=== PATIENT | female | born 1935 | race African-American/Black ===

== ENCOUNTER 2016-02-28 14:07 | Inpatient (IN) ==
[2016-02-28] MEDS ORDERED: NITROGLYCERIN 2% OINT 1 INCH/GM PACK TOP STA (14:38)
--- NOTE | 2016-02-28 14:53 | Emergency Department Note ---
Diana Baron Gwan, am scribing for, and in the presence of, Robert Daniel MD 14:42 . María Baron James D, MD, personally performed the services described in this documentation, ascribed by Sara Ortiz in my presence, and it is both accurate and complete 452 . Arrival - Arrival Chief Complaint: Shortness of Breath Stated Complaint: SOB transfer ED Nursing Triage Note: Pt sent from [facility] for SOB x 2 days and Trop of .35/BNP 6192 Mode of Arrival: Stretcher Limitations: No Limitations Source: Patient, Old Records Reviewed, RN Notes Reviewed Time Seen by Provider: 02/28/16 14:31 - History of Present Illness HPI Narrative: Pt is a 80 y/o female, brought in by EMS and transferred from [facility], for further evaluation of SOB with an onset of 2 days. EMS noted that pt has a Trop of .35/BNP 6192. Patient stated that her sxs worsened yesterday morning. She denies having any chest pain. She confirms that she leaves at home. During exam, patient stated that she has a sore on the heel if her right foot. Pt has a PMHx of CHF, HTN, CVA, peripheral neuropathy and NIDDM. No other problems/ complaints reported in ED. Onset (ago): day(s) Consistency: constant Severity: moderate Allergies/Adverse Reactions: Allergies Allergy/AdvReac Type Severity Reaction Status Date / Time No Known Allergies Allergy Unverified 08/07/14 13:06 Home Medications: Home Medications Medication Instructions Recorded Confirmed Type Fosinopril [Monopril] 20 mg PO DAILY 10/23/15 02/28/16 History Furosemide Tab [Lasix Tab] 40 mg PO QAM 10/23/15 02/28/16 History Multivits-Min/Iron/FA/Lutein 1 each PO DAILY 10/23/15 02/28/16 History [Centrum Silver Women Tablet] HYDROcodone/ACETAMIN 10-325 [[place] 1 tablet PO TID 02/28/16 02/28/16 History 10-325] Review of System - Review of System 12 point system: reviewed and no additional remarkable complaints except as stated - Review of System Respiratory: Present: as per HPI, other (short of breathe) Medical,Surgical,& Family Hx - Medical History Cardio: History of: CHF, Hypertension Neurology: History of: Cerebrovascular Accident, Peripheral Neuropathy Endocrine: History of: Diabetes Mellitus (NIDDM), Dyslipidemia Musculoskeletal: History of: Musculoskeletal Problems - Surgical History Abdominal Surgeries: Surgical HX of: Cholecystectomy - Social History Smoking Status: Never smoker Exam Vital Signs: Vital Signs Temperature 97.1 F L 02/28/16 14:11 Pulse Rate 80 02/28/16 15:34 Respiratory Rate 18 02/28/16 15:34 Blood Pressure 131/75 02/28/16 15:34 O2 Sat by Pulse Oximetry 98 02/28/16 15:34 GENERAL: This is a chronically ill-appearing white female in no apparent distress. VITAL SIGNS: Reviewed HEENT: Head is atraumatic and normocephalic. Pupils are equal round react to light. Extraocular movements are intact. Oropharynx is benign with moist mucous membranes. NECK: Neck is soft and supple without tenderness. There are no masses. There is no lymphadenopathy. LUNGS: Bibasilar rales. Chest rises symmetrically. There is no chest wall tenderness. CV: Heart is regular rate and rhythm without murmurs rubs or gallops. ABDOMEN: Abdomen is soft, nontender to palpation. There are no abdominal abnormal masses palpated. There is no organomegaly. Bowel sounds are present and active. SKIN: Skin is warm and dry. No rash. EXTREMITIES: Patient has full range of motion without tenderness. There is no pedal edema. NEUROLOGIC: Awake alert and oriented 4. Cranial nerves II through XII are grossly intact. Motor is 4 over 5 in all extremities bilaterally. Course - Consultations Consultation #1: Discussed with hospitalist. Patient will be admitted to their service. Time: 15:56 Results - Labs CBC & BMP: 02/28/16 14:59 Lab Results: I have reviewed the patients labs Labs: Laboratory Tests 02/28/16 02/28/16 14:59 15:30 INR 1.1 Urine pH 5.0 Ur Specific [place] 1.005 Urine RBC 31 Urine WBC <1 - EKG EKG results: interpreted by ERMD - Impressions EKG: Normal sinus rhythm with a rate of 81, first-degree AV block, right bundle branch block, left axis deviation. - Diagnostic Findings Procedure: Chest x-ray: image reviewed by me (Cardiomegaly with elevated right hemidiaphragm and possible right pleural effusion) Disposition Clinical Impression: Congestive heart failure, Hematuria Case discussed with: patient Disposition: Still a Patient Condition: Stable Time of Disposition: 15:56
--- NOTE | 2016-02-28 14:53 | EKG Report ---
Stationary ECG Study [facility] ER Test Date: 02/28/2016 2:14:36 PM Pat Name: CLIFTON GARCIA Department: Room: Gender: F Director Internal Communications: BULL Tadeo : 1935 Requested by: Robert Rodrigues Order Number: [id number] Reading MD: RISHABH THOMAS Intervals [place] Rate: 81 P: 74 SD: 287 QRS: -86 QRSD: 178 T: -4 QT: 428 QTc: 465 Interpretive Statements SINUS RHYTHM WITH PROLONGED SD INTERVAL MARKED LEFT AXIS DEVIATION RIGHT BUNDLE BRANCH BLOCK Electronically Signed On 02-28-16 16:39:28 OVEN UNLOADER by RISHABH THOMAS [email or web address]
[2016-02-28 15:29] LABS: Basophils % 0.3 % (0.0-0.8); Eosinophils % 0.1 % (0.00-10.9); Hematocrit 31.7 VOL% (35.7-47.0); Hemoglobin 10.1 GM/DL (12.0-16.0); Immature Granulocytes % 0.3 %; Immature Granulocytes Absolute 0.02 #; Lymphocytes # 1.9 10*3/uL (1.4-4.0); Lymphocytes % 24.4 % (21.3-54.2); Mean Corpuscular HGB Conc 31.9 GM/DL (32-36); Mean Corpuscular Hemoglobin 25 PG (27-34); Mean Corpuscular Volume 79.1 FL (87-102); Mean Platelet Volume 10.5 FL (9.6-12.0); Monocytes # 0.8 10*3/uL (0.11-0.8); Monocytes % 10.2 % (1.7-12.7); Neutrophils % 64.7 % (38.7-73.9); Platelet Count 208 10*3/uL (130-400); Red Blood Count 4.01 10*6/uL (3.8-5.5); Red Cell Distribution Width 14.2 % (9.3-17.3); White Blood Count 7.7 10*3/uL (4.5-13.71)
--- NOTE | 2016-02-28 15:31 | XRay Report ---
Portable chest Date:[Date] Clinical history: Shortness of breath Comparison: 02/28/2016 Technique: Portable AP sitting chest Findings: Stable cardiomegaly with chronic prominent elevation of the right hemidiaphragm. Atelectasis especially in the right mid to lower lung zone. Stable mediastinum with degenerative changes. Impression: Mild cardiomegaly with chronic elevation of the right hemidiaphragm. Residual scarring/atelectasis. PROCEDURE INTERPRETED AT [facility] ([facility] DEPARTMENT OF RADIOLOGY Final Report Signed by: Dr. Betty Garcia
[2016-02-28 15:41] LABS: INR 1.1; PT Patient Result 12.1 SECS; Partial Thromboplastin Time 31.2 SECS (0-40)
[2016-02-28] MEDS ORDERED: NITROGLYCERIN 2% OINT 1 INCH/GM PACK TOP ONE (15:41)
[2016-02-28 15:48] LABS: Apearance,Urine CLEAR (Clear); Bilirubin,Urine Negative (Negative); Blood, Urine Moderate mg/dL (Negative); Glucose,Urine (UA) Negative (Negative); Hyaline Casts,Urine 1 /LPF (0-3); Ketones,Urine Negative (Negative); Nitrite,Urine Negative (Negative); Protein,Urine Negative; RBC,Urine 31 /HPF (0-4); Squamous Epithelial Cell,Urine Occasional /HPF (0-10); Urine Color Straw (Yellow); Urine Specific Gravity 1.005 (1.001-1.035); Urine Urobilinogen < 2.0 EU/DL (0.2-1.0); WBC,Urine <1 /HPF (0-6)
[2016-02-28 15:54] LABS: Albumin 3.4 G/DL (3.4-5.0); Bilirubin,Total 1.8 MG/DL (0.2-1.0); Osmolality,Calculated 288.7 MOS/KG (273-304); Potassium 3.9 MMOL/L (3.5-5.1); Total Protein 6.9 G/DL (6.4-8.3)
[2016-02-28 15:57] LABS: Troponin I Only 1.09 NG/ML (0.00-0.045)
[2016-02-28] MEDS ORDERED: MORPHINE 2 MG/1 ML SYRINGE IV PRN (17:35)
[2016-02-28] MEDS ORDERED: LACTULOSE 20 GM/30 ML UDCUP PO PRN (17:35)
[2016-02-28] MEDS ORDERED: ACETAMINOPHEN 325 MG TABLET PO PRN (17:35)
[2016-02-28] MEDS ORDERED: ONDANSETRON 4 MG/2 ML VIAL IV PRN (17:35)
--- NOTE | 2016-02-28 18:49 | Hospitalist History & Physical ---
Assessment and Plan - Time spent with patient Time spent with patient: Greater than 30 minutes (1) Congestive heart failure Status: Acute Assessment and plan: Admit to monitored bed BNP in the morning, troponin the morning Routine labs Resume home medicines as appropriate. IV Lasix twice a day I&O PRN meds further plan and addendum to follow per Dr. Avilez Current Visit: Yes History of Present Illness Chief complaint: shortness of breath History of present illness: Ms. Sanchez is a 80 year old female who presents to the ER today from [facility]. She presented there with elevated BNP and elevated troponin. She complains of shortness of breath that worsened yesterday morning. Denies productive cough. Denies chest pain, denies headache, denies blurry vision, chills, fever, abdominal pain, nausea vomiting diarrhea, dysuria, edema. She is seen in the ER and after receiving IV Lasix, she has had a total urine output of 1300 mL and states her shortness of breath is much improved. She is awake and alert. She has a past medical history of CHF, hypertension, CVA, neuropathy and diabetes. Past surgical history of cholecystectomy. She denies smoking or drinking or drug use. Due to her previous stroke, she is debilitated from her left side, she lives at home and family helps take care of her. She does have a right heel wound, currently dressed. Troponin is elevated now to 1.090 and BNP here is 1600. On assessment she sounds like she has some respiratory congestion in her upper airways, family does agree that she chokes and coughs often while eating. Swallowing study has been ordered, upon Dr. Avilez assessment this was clear. Home Medications Medication Instructions Recorded Confirmed Type Fosinopril [Monopril] 20 mg PO DAILY 10/23/15 02/28/16 History Furosemide Tab [Lasix Tab] 40 mg PO QAM 10/23/15 02/28/16 History Multivits-Min/Iron/FA/Lutein 1 each PO DAILY 10/23/15 02/28/16 History [Centrum Silver Women Tablet] HYDROcodone/ACETAMIN 10-325 [[place] 1 tablet PO TID 02/28/16 02/28/16 History 10-325] Allergies Allergy/AdvReac Type Severity Reaction Status Date / Time No Known Allergies Allergy Unverified 08/07/14 13:06 Medical,Surgical,& Family Hx - Medical History Cardio: History of: CHF, Hypertension Neurology: History of: Cerebrovascular Accident, Peripheral Neuropathy Endocrine: History of: Diabetes Mellitus (NIDDM), Dyslipidemia Musculoskeletal: History of: Musculoskeletal Problems - Surgical History Abdominal Surgeries: Surgical HX of: Cholecystectomy - Social History Smoking Status: Never smoker Frequency of Alcohol Use: None Type of Drug Use: None Lives With:: Sibling Functional capacity: bed bound 12 point system: reviewed and no additional remarkable complaints except as stated Exam - Constitutional Vitals: Period Temp Pulse Resp BP Sys/Wiley Pulse Ox Last 24 Hr 97.1 F 79-83 17-24 131-165/63-100 95-100 General appearance: no acute distress - Head Head exam: Present: normal inspection, normocephalic - Eye Eye exam: Present: EOMI. Absent: scleral icterus Pupils: Present: JANETTE, normal accommodation - ENT ENT exam: Present: normal exam, normal oropharynx - Neck Neck exam: Present: normal inspection. Absent: lymphadenopathy - Respiratory Respiratory exam: Present: clear to auscultation bilaterally. Absent: wheezes - Cardiovascular Cardiovascular exam: Present: regular rate and rhythm. Absent: tachycardia - GI/Abdominal GI/Abdominal exam: Present: normal bowel sounds, soft. Absent: tenderness - Extremities Exam Extremities exam: Present: normal inspection, full ROM. Absent: edema - Back Exam Back exam: Present: normal inspection. Absent: muscle spasm - Neurological Exam Neurological exam: Present: alert, oriented X3 - Psychiatric Psychiatric exam: Present: normal affect, normal mood - Skin Skin exam: Present: normal color, warm, dry Results - Labs CBC & BMP: 02/28/16 14:59 02/28/16 14:59 Lab Results: I have reviewed the past 24 hour labs - Diagnostic Findings Procedure: Chest x-ray: report reviewed by me (mild cardiomegaly)
--- NOTE | 2016-02-28 21:09 | ECHO Report ---
Zeny Sanchez Exam Date: 02/28/2016 15:07 Referring Physician: Technologist: Dina BRINK Age: 80 Ht (in): Wt (lb): Gender: F Exam Location: [facility] Echo Indications: CHF, SOB, CVA, NIDDM BP: / HR: Rhythm: Sinus Technical Quality: Technically difficult study IMPRESSIONS Technically limited study with very poor visualization of the endocardial borders. The left ventricle is of normal size. The septum is mildly hypertrophic with normal systolic thickening. The remaining segments are not well visualized. The systolic function is grossly normal. Grade 3-4 diastolic dysfunction. Moderately dilated left atrium. Mild mitral regurgitation. MEASUREMENTS (Male / Female) Normal Values 2D ECHO LV Diastolic Diameter PLAX 3.8 cm 4.2 - 5.9 / 3.9 - 5.3 cm LV Systolic Diameter PLAX 3.4 cm LV Fractional Shortening PLAX 11.8 % IVS Diastolic Thickness 1.8 cm 0.6 - 1.0 / 0.6 - 0.9 cm LVPW Diastolic Thickness 1.2 cm 0.6 - 1.0 / 0.6 - 0.9 cm RV Internal Dim ED PLAX 3.2 cm Aortic Root Diameter 2.7 cm LA Systolic Diameter LX 3.8 cm 3.0 - 4.0 / 2.7 - 3.8 cm DOPPLER TR Peak Velocity 143.0 cm/s TR Peak Gradient 8.2 mmHg FINDINGS Left Ventricle The left ventricle is of normal size. The septum is mildly hypertrophic with normal systolic thickening. The remaining segments are not well visualized. The systolic function is grossly normal. Grade 3-4 diastolic dysfunction. Right Ventricle Normal right ventricular size. Right Atrium Normal right atrial size. Left Atrium The left atrium is moderately enlarged. Mitral Valve Poorly visualized, with mild regurgitation. Aortic Valve Poorly visualized. Tricuspid Valve Poorly visualized. insufficient data to estimate pulmonary artery systolic function. Pulmonic Valve Pulmonic valve not visualized. Pericardium No pericardial effusion. Aorta Not well visualized. Michael Rausch (Electronically Signed) Final Date: 28 February 2016 21:08
[2016-02-28] MEDS ORDERED: INFLUENZA VIRUS VACCINE 0.5 ML SYRINGE IM ONE (23:37)
[2016-02-29 06:16] LABS: Basophils % 0.2 % (0.0-0.8); Eosinophils % 0.2 % (0.00-10.9); Hematocrit 30.5 VOL% (35.7-47.0); Hemoglobin 9.4 GM/DL (12.0-16.0); Immature Granulocytes % 0.3 %; Immature Granulocytes Absolute 0.03 #; Lymphocytes # 1.8 10*3/uL (1.4-4.0); Lymphocytes % 20.4 % (21.3-54.2); Mean Corpuscular HGB Conc 30.8 GM/DL (32-36); Mean Corpuscular Hemoglobin 25 PG (27-34); Mean Corpuscular Volume 80.1 FL (87-102); Mean Platelet Volume 11.1 FL (9.6-12.0); Monocytes # 0.9 10*3/uL (0.11-0.8); Monocytes % 9.6 % (1.7-12.7); Neutrophils # 6.2 10*3/uL (1.4-7.4); Neutrophils % 69.3 % (38.7-73.9); Platelet Count 191 10*3/uL (130-400); Red Blood Count 3.81 10*6/uL (3.8-5.5); Red Cell Distribution Width 14.4 % (9.3-17.3); White Blood Count 8.9 10*3/uL (4.5-13.71)
[2016-02-29 06:57] LABS: Bilirubin,Total 1.9 MG/DL (0.2-1.0); Calcium 8.8 MG/DL (8.5-10.1); Osmolality,Calculated 292.6 MOS/KG (273-304); Potassium 3.8 MMOL/L (3.5-5.1)
[2016-02-29] MEDS: FOSINOPRIL 20 MG TABLET PO SCH (09:07)
[2016-02-29] MEDS: FUROSEMIDE 40 MG/4 ML VIAL IV SCH ×2 (09:07→17:18)
[2016-02-29] MEDS ORDERED: SKIN HEALING OINT (AQUAPHOR) 50 GM TUBE TOP PRN (09:48)
--- NOTE | 2016-02-29 10:49 | Physician Query Form ---
CLICK EDIT DOCUMENT TO SELECT QUERY ANSWER --> OK --> SIGN Dina Sanchez RN, CCDS Certified Clinical Cold Press Loader W) [phone] (f) [phone] [email or web address]: Make your selection(s) from the choices in EACH section by typing an "x" and enter comments in the comment section. Please use your independent medical judgment in providing your response. This request does not imply that any particular answer is desired or expected. CLINICAL INDICATORS: (Providers should not edit this section) The medical record indicates that the patient was admitted with CHF, BNP of 1613 #, and the patient was treated with IV Lasix. Please provide further specificity regarding CHF. ACUITY: ( ) Acute ( ) Chronic ( x) Acute on Chronic ( ) Clinically unable to determine TYPE: ( ) Systolic ( x) Diastolic ( ) Combined Systolic/Diastolic ( ) Other, please specify: ( ) Clinically unable to determine ( ) The patient does NOT have CHF COMMENTS: Use of terms such as suspected, likely, or probable (associated with a specific diagnosis that is being evaluated, monitored, or treated as if it exists) are acceptable and can be restated in the discharge summary if not ruled out. [facility]
--- NOTE | 2016-02-29 11:24 | Discharge Summary ---
Hospital Course - Hospital Course Hospital Course: Ms. Sanchez in a 80 year old female who was admitted yesterday for congestive heart failure. She presented as a transfer with increased shortness of breath, elevated BNP and elevated troponins. She was treated with IV Lasix in the Er and was already feeling improved when she was seen. She had good urine output and lungs were diminished but clearing. She was admitted overnight and given IV Lasix, has had continued output, total of approx 2L since arrival yesterday. She is breathing easy this morning. She has requested to go home this morning, labs and vitals are WNL, however her ECHO has not been read and she has not been previously evaluated for her CHF. Diagnosis - Discharge Diagnosis (1) Congestive heart failure Status: Acute Specialty Discharge - Follow Up or Referrals - Discharge Medications No Action Multivits-Min/Iron/FA/Lutein [Centrum Silver Women Tablet] 1 each PO DAILY Furosemide Tab [Lasix Tab] 40 mg PO QAM Fosinopril [Monopril] 20 mg PO DAILY HYDROcodone/ACETAMIN 10-325 [[place] 10-325] 1 tablet PO TID Discharge Plan - Discharge Medications No Action Multivits-Min/Iron/FA/Lutein [Centrum Silver Women Tablet] 1 each PO DAILY Furosemide Tab [Lasix Tab] 40 mg PO QAM Fosinopril [Monopril] 20 mg PO DAILY HYDROcodone/ACETAMIN 10-325 [[place] 10-325] 1 tablet PO TID - Follow Up or Referral - Forms/Instructions Exam - Constitutional Vitals: Period Temp Pulse Resp BP Sys/Wiley Pulse Ox Last 24 Hr 97.9 F-98.7 F 81-100 16-20 124-161/67-84 96-100 Discharge Results Procedures and tests throughout hospitalization: Pending Orders 03/01/16 04:00 XR chest 1V portable IN 48 HOURS Labs on day of discharge: Labs from last 24 hours 02/29/16 02/29/16 02/29/16 07:10 05:42 05:42 WBC 8.9 RBC 3.81 Hgb 9.4 L Hct 30.5 L MCV 80.1 L MCH 25 L MCHC 30.8 L RDW 14.4 Plt Count 191 MPV 11.1 Neut % (Auto) 69.3 Lymph % (Auto) 20.4 L Coal % (Auto) 9.6 Eos % (Auto) 0.2 Baso % (Auto) 0.2 Neut # (Auto) 6.2 Lymph # (Auto) 1.8 Coal # (Auto) 0.9 H Eos # (Auto) 0.0 Baso # (Auto) 0.0 Immature Gran % 0.3 Nucleated RBC % 0.0 Immature Gran # 0.03 Nucleated RBCs # 0.00 Sodium Potassium Chloride Carbon Dioxide Anion Gap BUN Creatinine GFR Calculation BUN/Creatinine Ratio Glucose POC Glucose 139 H Calculated Osmolality Calcium Total Bilirubin AST ALT Alkaline Phosphatase Troponin I B-Natriuretic Peptide 1550 H Total Protein Albumin Globulin Albumin/Globulin Ratio 02/29/16 02/29/16 02/28/16 05:41 05:41 19:49 WBC RBC Hgb Hct MCV MCH MCHC RDW Plt Count MPV Neut % (Auto) Lymph % (Auto) Coal % (Auto) Eos % (Auto) Baso % (Auto) Neut # (Auto) Lymph # (Auto) Coal # (Auto) Eos # (Auto) Baso # (Auto) Immature Gran % Nucleated RBC % Immature Gran # Nucleated RBCs # Sodium 146 H Potassium 3.8 Chloride 104 Carbon Dioxide 30 Anion Gap 15.8 H BUN 14 Creatinine 1.20 H GFR Calculation 55 BUN/Creatinine Ratio 11.00 Glucose 130 H POC Glucose 135 H Calculated Osmolality 292.6 Calcium 8.8 Total Bilirubin 1.90 H AST 28 ALT 42 Alkaline Phosphatase 81 Troponin I 1.170 H B-Natriuretic Peptide Total Protein 6.0 L Albumin 3.0 L Globulin 3.0 Albumin/Globulin Ratio 1.0 L DS: Provider Date of admission: 02/28/16 17:17 Primary care physician: . No PCP Attending physician on admission: Yolis Avilez MD Consults: 02/28/16 17:37 Consult to Wound Care [facility] [CONS] Routine Reason for Wound Care: Wound Care Management Consult Comment: Right heel wound 02/29/16 10:58 Consult to Case Mgmt/Social Srvs [CONS] Routine Reason for Case Mgmt/Social Srvs: Equipment Consult Comment: needs a wheelchair and home health if dosen't already have Discharging clinician: Yolis Lanier, SHIRAP-C
--- NOTE | 2016-02-29 11:29 | Hospitalist Progress Note ---
<Yolis Lanier N - Last Filed: 02/29/16 11:25> Assessment and Plan (1) Congestive heart failure Status: Acute Assessment and plan: BNP this morning is only minimally decreased Her troponin is increased this morning, was 0.35 at OSH, then 1.090 yesterday, 1.170 today, Echo has been read, will consult cardiology to evaluate her further Current Visit: Yes Hospitalist: Subjective Interval history: Ms. Sanchez in a 80 year old female who was admitted yesterday for congestive heart failure. She presented as a transfer with increased shortness of breath, elevated BNP and elevated troponins. She was treated with IV Lasix in the Er and was already feeling improved when she was seen. She had good urine output and lungs were diminished but clearing. She was admitted overnight and given IV Lasix, has had continued output, total of approx 2L since arrival yesterday. She is breathing easy this morning. She has requested to go home this morning, labs and vitals are WNL, however her ECHO has been read, showing Grade 3-4 diastolic dysfunction, normal systolic function. She has not been previously evaluated for her CHF, we are recommending that she stay and be evaluated by Cardiology. Exam - Constitutional Vitals: Period Temp Pulse Resp BP Sys/Wiley Pulse Ox Last 24 Hr 97.9 F-98.7 F 81-100 16-20 124-161/67-84 96-100 Results - Labs CBC & BMP: 02/29/16 05:42 02/29/16 05:41 Specialty Discharge - Follow Up or Referrals - Discharge Medications No Action Multivits-Min/Iron/FA/Lutein [Centrum Silver Women Tablet] 1 each PO DAILY Furosemide Tab [Lasix Tab] 40 mg PO QAM Fosinopril [Monopril] 20 mg PO DAILY HYDROcodone/ACETAMIN 10-325 [[place] 10-325] 1 tablet PO TID <Yolis Avilez - Last Filed: 02/29/16 11:52> Hospitalist: Subjective Interval history: I have seen and examined Ms Sanchez. She says she is ready to go home, but she has never been evaluated before for her CHF here. Her echo shows diastolic dysfunction, and her troponins are minimally elevated. She would benefit from cardiology evaluation and possibly stress test/cath. Clinically she is much improved from the time of her presentation to outside ER where her exam is recorded as showing pulmonary edema. Since diuresis her BNP has come down in parallel with her improved shortness of breath. She is not very active, confined to bed and wheelchair. Exam - Constitutional Vitals: Period Temp Pulse Resp BP Sys/Wiley Pulse Ox Last 24 Hr 97.9 F-98.7 F 81-100 16-20 124-161/67-84 96-100 Results - Labs CBC & BMP: 02/29/16 05:42 02/29/16 05:41
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
--- NOTE | 2016-02-29 17:40 | Ultrasound Report ---
US venous doppler LE BI Indication: Rule out DVT. Comparison: None. Technique: Grayscale, spectral, and color Doppler interrogation of the bilateral lower extremity veins was performed. Augmentation and compression was performed. Findings: Grayscale, color Doppler, and pulsed Doppler evaluation of the veins of the bilateral lower extremity demonstrate no evidence of deep venous thrombosis. IMPRESSION: No evidence of deep venous thrombosis in the bilateral lower extremity. PROCEDURE INTERPRETED AT [facility] DEPARTMENT OF RADIOLOGY Final Report Signed by: Dr Mikhail Garcia
--- NOTE | 2016-03-01 07:25 | Sleep Medicine Consult ---
Assessment and Plan (1) Obstructive sleep apnea Status: Acute Assessment and plan: We will try to review her records and reassess her. She had apparently issues with compliant with CPAP in the past and did not tolerate it. We may have to restudy her at this point given her weight loss and lack of snoring. If she is to remain in the hospital, we may account compos this with HST though she is on supplemental oxygen and this may impact the evaluation. If negative, I would recommend polysomnography. This may be more difficult to do on an outpatient basis due to her frailty. Current Visit: Yes (2) Acute on chronic diastolic congestive heart failure Status: Acute Assessment and plan: Untreated sleep apnea certainly could contribute to CHF. Treating underlying sleep apnea often improves management of congestive heart failure. Clinical evidence has shown that treating sleep apnea in patients with congestive heart failure can decrease readmission rate to the hospital. Current Visit: Yes (3) Diabetes Status: Acute Assessment and plan: The prevalence rate for obstructive sleep apnea in patients with type 2 diabetes can be as high as 86%. Those patients with moderate to severe obstructive sleep apnea are at a greater risk for diabetic nephropathy and neuropathy. Compliance with CPAP therapy for these patients can lead to improvement in glycemic control and improvement in insulin sensitivity. Current Visit: Yes History of Present Illness Chief complaint: sleep apnea History of present illness: Ms. Sanchez is a 80 year old female admitted with congestive heart failure. She has a history of sleep apnea and previously had undergone sleep study years ago. The patient thinks it was done at this institution. I have no records available to me at this point but those will be obtained and reviewed. Her son states that her sleep is unrestful. She does awaken frequently during the night and move frequently during the night. She does have discomfort of her legs. He is not aware of her snoring in the patient denies awakening from sleep short of breath. She usually gets out of the bed and he denies that she has significant problems with sleepiness during the day. She is quite frail related to her chronic health problems. Her weight has declined since the time of her original evaluation. During this hospital stay, and has been noted that she has normal LV function but does have evidence of diastolic dysfunction. Home Medications Medication Instructions Recorded Confirmed Type Fosinopril [Monopril] 20 mg PO DAILY 10/23/15 02/29/16 History Furosemide Tab [Lasix Tab] 40 mg PO QAM 10/23/15 02/29/16 History Multivits-Min/Iron/FA/Lutein 1 each PO DAILY 10/23/15 02/29/16 History [Centrum Silver Women Tablet] HYDROcodone/ACETAMIN 10-325 [[place] 1 tablet PO TID 02/28/16 02/29/16 History 10-325] Ammonium Lactate 12% Cream 12 applic TOP BID 02/29/16 02/29/16 History [Lac-Hydrin 12% Cream] Nitroglycerin 0.4 mg/Hr Patch 0.4 mg TRANSDERM DAILY 02/29/16 02/29/16 History [Nitro-Dur 0.4 mg/hr Patch] Pentoxifylline 400 mg PO TID 02/29/16 02/29/16 History glipiZIDE [Glipizide] 10 mg PO BID 02/29/16 02/29/16 History Allergies Allergy/AdvReac Type Severity Reaction Status Date / Time No Known Allergies Allergy Verified 02/29/16 00:31 Review of systems: Notable for fatigue and multiple awakenings during the night. Nocturia was an issue in the past but not so much anymore. She does have chronic issues with lower extremity swelling. Exam (Pulmonay) H&P - Constitutional Vitals: Period Temp Pulse Resp BP Sys/Wiley Pulse Ox Last 24 Hr 97.1 F-98.8 F 71-81 16-20 117-147/50-85 96-100 Exam: She is chronically ill-appearing. Pupils equal round reactive to light and accommodation. Extraocular movements intact. Oropharynx with class IV Mallampati exam. Neck is supple without adenopathy or thyromegaly. Chest with good air movement and no focal wheezes rhonchi or rales. Cardiac exam reveals a regular rhythm without murmur or gallop. Abdomen soft nontender without palpable hepatosplenomegaly or mass. Extremities without significant edema at present. Neurologically, she is grossly intact. She moves all extremities with good strength. Medical,Surgical,& Family Hx - Medical History Cardio: History of: CHF, Hypertension Neurology: History of: Cerebrovascular Accident, Peripheral Neuropathy Endocrine: History of: Diabetes Mellitus (NIDDM), Dyslipidemia Respiratory: History of: Obstructive Sleep Apnea Musculoskeletal: History of: Musculoskeletal Problems - Surgical History HEENT Surgeries: Surgical HX of: Eye Surgery (bilateral cataract) Abdominal Surgeries: Surgical HX of: Cholecystectomy Orthopedic Surgeries: Surgical HX of;: Orthopedic Surgery (collar bone) - Family History Family History: Reports;: Family Diabetes (2 SISTERS AND 1 BROTHER), Family Hypertension (siblings), Additional Family History (son with kidney disease) - Social History Smoking Status: Never smoker (dips snuff) Frequency of Alcohol Use: None Type of Drug Use: None Results - Labs CBC & BMP: 02/29/16 05:42 02/29/16 05:41 Lab Results: I have reviewed the past 24 hour labs
--- NOTE | 2016-03-01 07:32 | XRay Report ---
Portable chest Date:[03/01/2016] Clinical history: CHF Comparison: 02/28/2016 Technique: Portable AP sitting chest Findings: Stable cardiomegaly. Chronic elevation of the right hemidiaphragm with progressive adjacent parenchymal findings. The left lung is stable in appearance. No acute osseous findings. Impression: Minimal cardiomegaly. Chronic elevation of the right hemidiaphragm. Progressive atelectasis/infiltration right mid to lower lung zone. PROCEDURE INTERPRETED AT [facility] DEPARTMENT OF RADIOLOGY Final Report Signed by: Dr. Betty Garcia
[2016-03-01] MEDS: FOSINOPRIL 20 MG TABLET PO SCH (08:44)
[2016-03-01] MEDS: FUROSEMIDE 40 MG/4 ML VIAL IV SCH ×2 (08:44→15:35)
--- NOTE | 2016-03-01 11:13 | Cardiology Progress Note ---
I, Radha Sorto RN, am scribing for, and in the presence of, Santiago Ponce MD 11:11. Assessment and Plan (1) Acute on chronic diastolic congestive heart failure Status: Acute Assessment and plan: Clinically she is improved with diuresis. This appears to be diastolic congestive heart failure, she has preserved left ventricular systolic function. Given the patient's functional limitations and other medical issues I think I would manage this conservatively as you are. From my standpoint, she could be discharged home when she is otherwise ready. Current Visit: Yes (2) Abnormal cardiac enzyme level Status: Acute Assessment and plan: The patient has a slight bump in cardiac enzymes, but denies any sort of chest pain or palpitations. It is possible she could have a mild bump in cardiac enzymes were related to congestive heart failure. It is also possible she could have this from pulmonary embolus, which would also cause dyspnea. She is nonambulatory/bedbound so this does place her at higher risk of deep venous thrombosis and/or PE, so I would like to check an ultrasound of her legs to rule out deep venous thrombosis. Given the patient's medical problems and severe functional limitations, I don't think I would be aggressive in working this up invasively in the absence of any symptoms other than dyspnea which improved with diuresis. For now I think I would manage her cardiac status conservatively. From my standpoint, she could be discharged home, as she is feeling back to her baseline. Current Visit: Yes (3) Debility Status: Acute Current Visit: Yes (4) Diabetes Status: Acute Current Visit: Yes (5) Frailty Status: Acute Current Visit: Yes (6) History of stroke Status: Acute Current Visit: Yes (7) Obstructive sleep apnea Status: Acute Current Visit: Yes (8) Stasis ulcer of right lower extremity Status: Acute Current Visit: Yes Cardiology - PN: Subj Interval history: Resting in bed in no acute distress, oxygen in use via NBP. Family at bedside. She denies any chest pain, shortness of breath, or palpitations. Her only complaint is of right foot pain where she apparently has an ulceration, her right foot is bandaged. Venous dopplers done yesterday were negative. According to I&O chart, she continues to diurese well. She is on Lasix 40mg IV bid. Currently she is in sinus rhythm with heart rates in the 70's. She has no cardiac complaints today and is requesting to go home. As noted yesterday, given her medical problems, debility, and clinical improvement, I would be conservative in her cardiac management. It Would be okay with me to send her home. Current Medications Acetaminophen (Tylenol Tab) 325 mg PO Q4H PRN PRN Reason: fever, headache/body aches Acetaminophen/Hydrocodone Bitart ([place] 7.5-325) 1 tablet PO Q4H PRN PRN Reason: Pain Moderate (4-7) Last Admin: 03/01/16 09:32 Dose: 1 tablet Fosinopril Sodium (Monopril) 20 mg PO DAILY [facility] Last Admin: 03/01/16 08:44 Dose: 20 mg Furosemide (Lasix Inj) 40 mg IV BID DIURETIC [facility] Last Admin: 03/01/16 08:44 Dose: 40 mg Lactulose (Chronulac) 20 gm PO Q4H PRN PRN Reason: Constipation Morphine Sulfate () 2 mg IV Q4H PRN PRN Reason: Pain Severe (8-10) Ondansetron HCl (Zofran Inj) 4 mg IV Q4H PRN PRN Reason: Nausea Petrolatum (Aquaphor) 1 applic TOP PRN PRN PRN Reason: Dry Skin Exam (Progress Note) - Constitutional Vitals: Period Temp Pulse Resp BP Sys/Wiley Pulse Ox Last 24 Hr 97.1 F-98.8 F 71-80 16-20 117-146/50-85 96-100 General appearance: no acute distress - Head Head exam: Present: normal inspection - Neck Neck exam: Absent: tenderness - Respiratory Respiratory exam: Present: rales, other (oxygen in use). Absent: accessory muscle use, chest wall tenderness - Cardiovascular Cardiovascular exam: Present: regular rate and rhythm - GI/Abdominal GI/Abdominal exam: Present: normal bowel sounds, soft. Absent: distended, tenderness - Extremities Exam Extremities exam: Present: other (right foot is bandaged). Absent: edema - Neurological Exam Neurological exam: Present: alert, oriented X3 - Psychiatric Psychiatric exam: Present: anxious - Skin Skin exam: Present: warm, dry Result/EKG - Labs CBC & BMP: 02/29/16 05:42 02/29/16 05:41 Lab Results: I have reviewed the past 24 hour labs Labs: Laboratory Results - last 24 hr 02/29/16 02/29/16 02/29/16 10:36 16:17 21:13 POC Glucose 137 H 196 H 169 H 03/01/16 07:09 POC Glucose 139 H - EKG EKG results: interpreted by me EKG shows: sinus rhythm Rosario Baron Michael, MD, personally performed the services described in this documentation, ascribed by Radha Sorto RN in my presence, and it is both accurate and complete .
[2016-03-01 11:38] VITALS: BP 133/67
--- NOTE | 2016-03-01 13:08 | Discharge Summary ---
<Shayy Ledezam - Last Filed: 03/01/16 13:20> Hospital Course - Hospital Course Hospital Course: Ms. Sanchez was admitted on 02/28/16 with acute on chronic diastolic congestive heart failure. ECHO showed grade 3-4 diastolic dysfunction. She was treated with IV Lasix and has diuresed well. She was also noted to have an elevation in his troponins at 1.090 and then 1.170. He does have a hx of obstructive sleep apnea and Dr. Ruffin with Sleep Medicine was consulted and saw on 03/01/16. CPAP compliance with was stressed. Cardiology has cleared for discharge as she is back to her baseline. She will be discharged home today on appropriate medications and follow up. Diagnosis - Discharge Diagnosis (1) Abnormal cardiac enzyme level Status: Acute (2) Acute on chronic diastolic congestive heart failure Status: Acute (3) Diabetes Status: Acute (4) History of stroke Status: Acute (5) Obstructive sleep apnea Status: Acute (6) Stasis ulcer of right lower extremity Status: Acute Specialty Discharge - Follow Up or Referrals Follow up with: Your, PCP [Other] (1 week ) Laurita Ruffin MD [Physician] - 03/15/16 10:45 am Santiago Ponce MD [Physician] - 03/16/16 12:50 pm Discharge Plan - Discharge Data Disposition: Home Health Service - Discharge Medications Continue Multivits-Min/Iron/FA/Lutein [Centrum Silver Women Tablet] 1 each PO DAILY Furosemide Tab [Lasix Tab] 40 mg PO QAM Fosinopril [Monopril] 20 mg PO DAILY HYDROcodone/ACETAMIN 10-325 [Burson 10-325] 1 tablet PO TID glipiZIDE [Glipizide] 10 mg PO BID Nitroglycerin 0.4 mg/Hr Patch [Nitro-Dur 0.4 mg/hr Patch] 0.4 mg TRANSDERM DAILY Ammonium Lactate 12% Cream [Lac-Hydrin 12% Cream] 12 applic TOP BID Pentoxifylline 400 mg PO TID - Follow Up or Referral Follow Up: Your, PCP [Other] (1 week ) Laurita Ruffin MD [Physician] - 03/15/16 10:45 am Santiago Ponce MD [Physician] - 03/16/16 12:50 pm - Forms/Instructions Instructions: Heart Failure (DC), Sleep Apnea Syndrome (DC) Exam - Constitutional Vitals: Period Temp Pulse Resp BP Sys/Wiley Pulse Ox Last 24 Hr 97.1 F-98.8 F 66-80 16-20 117-143/50-76 99-100 Discharge Results Labs on day of discharge: Labs from last 24 hours 03/01/16 03/01/16 02/29/16 11:25 07:09 21:13 POC Glucose 144 H 139 H 169 H 02/29/16 02/29/16 16:17 10:36 POC Glucose 196 H 137 H DS: Provider Date of admission: 02/28/16 17:17 Primary care physician: . No PCP Attending physician on admission: Yolis Avilez MD Consults: 02/28/16 17:37 Consult to Wound Care - [place] [CONS] Routine Reason for Wound Care: Wound Care Management Consult Comment: Right heel wound 02/29/16 10:58 Consult to Case Mgmt/Social Srvs [CONS] Routine Reason for Case Mgmt/Social Srvs: Equipment Consult Comment: needs a wheelchair and home health if dosen't already have 02/29/16 12:17 Consult to Physician [CONS] Routine Comment: Consulting Provider: Santiago Ponce Consult to Specialist Group: Cardiology Person Notified: Ry Date Notified: 02/29/16 Time Notified: 12:24 02/29/16 14:30 Consult to Sleep Center [CONS] Routine Reason for Sleep Center: Sleep Center Physician Consult Comment: needs re-evaled, 03/01/16 13:13 Consult to Case Mgmt/Social Srvs [CONS] Routine Reason for Case Mgmt/Social Srvs: Home Health Consult Comment: home health nursing, ST, PT and OT Discharging clinician: Shayy Ledezma NP Expected date of discharge: 03/01/16 <Yolis Avilez - Last Filed: 03/01/16 16:09> Hospital Course - Hospital Course Hospital Course: I have seen and examined mrs Sanchez and agree with the discharge summary above. I discussed her discharge plan with her and her family. Diagnosis - Discharge Diagnosis (1) Acute on chronic diastolic congestive heart failure Status: Acute (2) Diabetes Status: Acute (3) History of stroke Status: Acute (4) Debility Status: Acute (5) Frailty Status: Acute (6) Stasis ulcer of right lower extremity Status: Acute (7) Obstructive sleep apnea Status: Acute Discharge Plan - Discharge Data Condition at Discharge: Stable Discharge Diet: diabetic diet, heart healthy, other (soft diet) Activity: resume usual activities as tolerated Exam - Constitutional General appearance: no acute distress, over weight - Head Head exam: Present: normocephalic, atraumatic - Eye Eye exam: Present: EOMI. Absent: scleral icterus - Respiratory Respiratory exam: Present: clear to auscultation bilaterally - Cardiovascular Cardiovascular exam: Present: regular rate and rhythm - GI/Abdominal GI/Abdominal exam: Present: normal bowel sounds, soft. Absent: tenderness - Extremities Exam Extremities exam: Absent: edema
== END 2016-03-01 15:45 | disposition home health service (06) | DRG 292 ==
LOC: EDUNIT# → EDBD → N.ED 14:07 → N.EDINP 17:17 → N.5E 19:20
PROVIDERS: ADMIT Internal Medicine; ATTEND Internal Medicine